=== PATIENT | female | born 1960 | race Two or more races ===

== ENCOUNTER 2023-12-10 14:35 | Inpatient (IN) | payer MEDICAID, OTHER ==
[~2023-12-10] VITALS: Ht 149.9 cm; Wt 59.5 kg
[2023-12-10 15:09] LABS: Basophils # (auto) 0.1 10 ^3/uL (0-0.2); Basophils % (auto) 0.7 % (0.0-2.0); Eosinophils # (auto) 0.2 10 ^3/uL (0-0.8); Eosinophils % (auto) 2.3 % (0.0-7.0); Hematocrit 39.3 % (36.0-46.0); Hemoglobin 13.5 g/dL (12.2-16.2); Lymphocytes # (auto) 2.2 10 ^3/uL (0.4-5.4); Lymphocytes % (auto) 28.3 % (10.0-50.0); Mean Corpuscular Hemoglobin 32.1 pg (28.0-32.0); Mean Corpuscular Hgb Conc. 34.5 g/dL (32.0-36.0); Mean Corpuscular Volume 93.1 fL (80.0-100.0); Monocytes # (auto) 0.5 10 ^3/uL (0-1.3); Monocytes % (auto) 6.2 % (0.0-12.0); Neutrophils # (auto) 4.8 10 ^3/uL (1.6-8.6); Neutrophils % (auto) 62.5 % (37.0-80.0); Nucleated Red Blood Cells % 0.1 %; Platelet Count (auto) 244 10^3/uL (140-450); Red Blood Cells 4.22 10^6/uL (4.0-5.20); Red Cell Distribution Width 13.1 % (11.8-14.3); White Blood Cell 7.7 10^3/uL (4.4-10.8)
[2023-12-10 15:30] LABS: Alanine Aminotransferase 23 U/L (7-40); Albumin 4.5 g/dL (3.2-4.8); Alkaline Phosphatase 165 U/L (46-116); Anion Gap 9 (5-15); Aspartate Aminotransferase 16 U/L (13-40); BUN/Creatinine Ratio 8.6 (10.0-20.0); Bilirubin, Total 0.4 mg/dL (0.2-1.0); Blood Urea Nitrogen 7 mg/dL (9-23); Calcium 9.7 mg/dL (8.7-10.4); Carbon Dioxide 25 mmol/L (20-31); Chloride 104 mmol/L (98-107); Glucose 234 mg/dL (74-106); Potassium 3.7 mmol/L (3.5-5.1); Sodium 138 mmol/L (136-145); Total Protein 7.8 g/dL (5.7-8.2)
[2023-12-10 19:00] VITALS: PULSE 67; RESP 16; O2SAT 99
[2023-12-10] MEDS: SODIUM CHLORIDE 0.9% 1,000 ML IV ONE (19:36)
[2023-12-10] MEDS: ASPirin 325 MG TAB PO ONE (19:53)
[2023-12-10] MEDS: NITROGLYCERIN 0.4 MG SL TAB SL ONE (19:54)
[2023-12-11] MEDS ORDERED: KETOROLAC TROMETH 30 MG/ML 1ML VIAL IV PRN (00:15)
[2023-12-11] MEDS ORDERED: ACETAMINOPHEN 500 MG TAB PO PRN (00:15)
[2023-12-11] MEDS: POTASSIUM EFFERVESENT TAB 25 MEQ PO ONE (00:48)
[2023-12-11] MEDS: ENOXAPARIN SOD 40 MG/0.4 ML SYRINGE SC ONE (00:49)
[2023-12-11 02:18] LABS: Urine Bacteria MANY /hpf (None Seen); Urine Blood Negative /uL (Negative); Urine Clarity Turbid (Clear); Urine Color Colorless (Yellow); Urine Mucus FEW (None Seen); Urine Protein, UAD Negative (Negative); Urine Specific Gravity 1.014 (1.001-1.035); Urine Urobilinogen Normal (Negative); Urine WBC 135 /hpf (0 - 5)
[2023-12-11 02:20] LABS: Amphetamine Screen, Urine Neg (NEGATIVE); Barbiturate Scree,Urine Neg (NEGATIVE); Benzodiazephine Screen, Urine Neg (NEGATIVE); Cannabinoid Screen, Urine Neg (NEGATIVE); Cocaine Screen, Urine Neg (NEGATIVE); Opiate Scree,Urine Neg (NEGATIVE); Phencyclidine Screen, Urine Neg (NEGATIVE)
[2023-12-11 03:39] VITALS: PULSE 59; RESP 16; O2SAT 98
[2023-12-11] MEDS ORDERED: ATOR20TA PO (06:10)
[2023-12-11 07:39] VITALS: PULSE 62
[2023-12-11 08:16] LABS: COVID19 ANTIGEN SOFIA FIA NEGATIVE (NEGATIVE)
[2023-12-11] MEDS: ASPirin 81 mg TAB PO SCH (08:56)
[2023-12-11] MEDS: cefTRIAXone 1GM/50ML D5W 50 ML IV SCH (08:56)
[2023-12-11 09:00] VITALS: BP 107/61; PULSE 63; RESP 20; TEMP 97.6; O2SAT 97
[2023-12-11 10:02] LABS: Basophils # (auto) 0 10 ^3/uL (0-0.2); Basophils % (auto) 0.8 % (0.0-2.0); Eosinophils # (auto) 0.2 10 ^3/uL (0-0.8); Eosinophils % (auto) 3.2 % (0.0-7.0); Hematocrit 38.6 % (36.0-46.0); Hemoglobin 13.3 g/dL (12.2-16.2); Lymphocytes # (auto) 1.8 10 ^3/uL (0.4-5.4); Lymphocytes % (auto) 30.3 % (10.0-50.0); Mean Corpuscular Hemoglobin 32.3 pg (28.0-32.0); Mean Corpuscular Hgb Conc. 34.4 g/dL (32.0-36.0); Mean Corpuscular Volume 93.9 fL (80.0-100.0); Monocytes # (auto) 0.4 10 ^3/uL (0-1.3); Monocytes % (auto) 6.3 % (0.0-12.0); Neutrophils # (auto) 3.5 10 ^3/uL (1.6-8.6); Neutrophils % (auto) 59.4 % (37.0-80.0); Nucleated Red Blood Cells % 0.1 %; Platelet Count (auto) 234 10^3/uL (140-450); Red Blood Cells 4.11 10^6/uL (4.0-5.20); Red Cell Distribution Width 13.6 % (11.8-14.3); White Blood Cell 5.8 10^3/uL (4.4-10.8)
[2023-12-11 10:26] LABS: Anion Gap 7 (5-15); Carbon Dioxide 27 mmol/L (20-31); Chloride 107 mmol/L (98-107); Potassium 3.6 mmol/L (3.5-5.1); Sodium 141 mmol/L (136-145)
[2023-12-11 10:27] LABS: Calcium 9.4 mg/dL (8.7-10.4)
[2023-12-11 10:32] LABS: Glucose 151 mg/dL (74-106); Triglycerides 245 mg/dL (< 150)
[2023-12-11 10:33] LABS: LDL Cholesterol 98 mg/dL (< 100)
[2023-12-11 10:34] LABS: Cholesterol 176 mg/dL (< 200); HDL Cholesterol 41 mg/dL (40-59)
[2023-12-11 10:35] LABS: BUN/Creatinine Ratio 6.7 (10.0-20.0); Blood Urea Nitrogen < 5 mg/dL (9-23)
[2023-12-11 10:44] LABS: INR 1.08 (0.9-1.15); Partial Thromboplastin Time 29.7 SEC (24.5-34.5); Prothrombin Time 11.4 sec (9.3-11.8)
[2023-12-11 13:00] VITALS: BP 111/64; PULSE 70; RESP 18; TEMP 97.8; O2SAT 98
[2023-12-11 13:43] LABS: Erythrocyte Sedimentation Rate 13 mm/hr (0-20)
[2023-12-11 16:28] VITALS: BP 105/59; PULSE 65; RESP 16; TEMP 97.9; O2SAT 97
[2023-12-11 18:36] LABS: Rapid Influenza A Negative (Negative); Rapid Influenza B Negative (Negative)
[2023-12-11 21:00] VITALS: BP 108/61; PULSE 64; RESP 20; TEMP 97.7; O2SAT 97
[2023-12-11] MEDS: ATORVASTATIN 20 MG TAB PO SCH (21:11)
[2023-12-12] VITALS (8 sets, daily range): BP systolic 91–142; BP diastolic 44–84; PULSE 58–70; RESP 17–22; TEMP 97.5–98.3; O2SAT 96–99
[2023-12-12 06:41] LABS: Basophils # (auto) 0.1 10 ^3/uL (0-0.2); Eosinophils # (auto) 0.2 10 ^3/uL (0-0.8); Eosinophils % (auto) 2.9 % (0.0-7.0); Hematocrit 39.7 % (36.0-46.0); Hemoglobin 13.6 g/dL (12.2-16.2); Lymphocytes # (auto) 2.1 10 ^3/uL (0.4-5.4); Lymphocytes % (auto) 33.1 % (10.0-50.0); Mean Corpuscular Hemoglobin 32.2 pg (28.0-32.0); Mean Corpuscular Hgb Conc. 34.4 g/dL (32.0-36.0); Mean Corpuscular Volume 93.9 fL (80.0-100.0); Monocytes # (auto) 0.5 10 ^3/uL (0-1.3); Monocytes % (auto) 8.6 % (0.0-12.0); Neutrophils # (auto) 3.4 10 ^3/uL (1.6-8.6); Neutrophils % (auto) 54.4 % (37.0-80.0); Nucleated Red Blood Cells % 0.1 %; Platelet Count (auto) 246 10^3/uL (140-450); Red Blood Cells 4.23 10^6/uL (4.0-5.20); Red Cell Distribution Width 13.1 % (11.8-14.3); White Blood Cell 6.3 10^3/uL (4.4-10.8)
[2023-12-12 06:50] LABS: Chloride 106 mmol/L (98-107); Sodium 139 mmol/L (136-145)
[2023-12-12 06:51] LABS: Anion Gap 7 (5-15); Carbon Dioxide 26 mmol/L (20-31)
[2023-12-12 06:52] LABS: Calcium 9.8 mg/dL (8.7-10.4)
[2023-12-12 06:56] LABS: Glucose 87 mg/dL (74-106)
[2023-12-12 06:57] LABS: BUN/Creatinine Ratio 12.8 (10.0-20.0); Blood Urea Nitrogen 10 mg/dL (9-23)
[2023-12-12] MEDS: SUCRALFATE 1 GM/10 ML ORAL SUSP GT SCH (14:18)
[2023-12-12] MEDS: PANTOPRAZOLE 40 MG TAB PO SCH (14:18)
[2023-12-12] MEDS: SUCRALFATE 1 GM/10 ML ORAL SUSP PO SCH (14:30)
[2023-12-13 01:00] VITALS: BP_SYST 102; BP_SYST 129; BP_DIAS 51; BP_DIAS 77; PULSE 60; PULSE 87; RESP 17; TEMP 97.6; O2SAT 96; O2SAT 97
[2023-12-13 05:00] VITALS: BP 99/55; PULSE 56; RESP 17; TEMP 97.7; O2SAT 95
[2023-12-13 07:07] LABS: Basophils # (auto) 0.1 10 ^3/uL (0-0.2); Basophils % (auto) 0.9 % (0.0-2.0); Eosinophils # (auto) 0.2 10 ^3/uL (0-0.8); Eosinophils % (auto) 3.7 % (0.0-7.0); Hematocrit 41.3 % (36.0-46.0); Hemoglobin 14.2 g/dL (12.2-16.2); Lymphocytes # (auto) 2.1 10 ^3/uL (0.4-5.4); Lymphocytes % (auto) 34.2 % (10.0-50.0); Mean Corpuscular Hemoglobin 32.1 pg (28.0-32.0); Mean Corpuscular Hgb Conc. 34.3 g/dL (32.0-36.0); Mean Corpuscular Volume 93.7 fL (80.0-100.0); Monocytes # (auto) 0.5 10 ^3/uL (0-1.3); Monocytes % (auto) 7.9 % (0.0-12.0); Neutrophils # (auto) 3.3 10 ^3/uL (1.6-8.6); Neutrophils % (auto) 53.3 % (37.0-80.0); Nucleated Red Blood Cells % 0.1 %; Platelet Count (auto) 257 10^3/uL (140-450); Red Blood Cells 4.41 10^6/uL (4.0-5.20); White Blood Cell 6.1 10^3/uL (4.4-10.8)
[2023-12-13 07:22] LABS: Anion Gap 10 (5-15); Carbon Dioxide 24 mmol/L (20-31); Chloride 105 mmol/L (98-107); Potassium 3.7 mmol/L (3.5-5.1); Sodium 139 mmol/L (136-145)
[2023-12-13 07:28] LABS: BUN/Creatinine Ratio 14.1 (10.0-20.0); Blood Urea Nitrogen 11 mg/dL (9-23); Glucose 86 mg/dL (74-106)
[2023-12-13 08:00] VITALS: RESP 16
[2023-12-13 08:11] VITALS: BP 104/50; PULSE 69; RESP 20; TEMP 97.7; O2SAT 95
[2023-12-13 13:24] VITALS: BP 104/58; PULSE 66; RESP 19; TEMP 97.7; O2SAT 97
[2023-12-13 15:06] VITALS: BP 104/58; PULSE 66; RESP 16; TEMP 97.7; O2SAT 97
[2023-12-13] MEDS ORDERED: CIPR250T26 PO (18:14)
[2023-12-13] MEDS ORDERED: ATOR40TA52 PO (18:14)
== END 2023-12-13 16:00 | disposition home or self-care (01) | DRG 463 ==
LOC: ER 14:38 → TELE 23:44 → TELE-WESTW 12-11 05:30 → WEST WING 12-11 22:27
PROVIDERS: ADMIT Internal Medicine; ATTEND Internal Medicine
DX: N30.00 Acute cystitis without hematuria (principal); E66.3 Overweight; M94.0 Chondrocostal junction syndrome [Tietze]; E78.5 Hyperlipidemia, unspecified; M19.90 Unspecified osteoarthritis, unspecified site; I45.10 Unspecified right bundle-branch block; R73.9 Hyperglycemia, unspecified; Z20.822 Contact with and (suspected) exposure to COVID-19; Z68.26 Body mass index [BMI] 26.0-26.9, adult; Z79.899 Other long term (current) drug therapy; Z88.0 Allergy status to penicillin
CPT/HCPCS: 36415; 71045; 80048; 80053; 80061; 80307; 81001; 82306; 82607; 83036; 83880; 84443; 84484; 85025; 85379; 85610; 85652; 85730; 86141; 87086; 87426; 87804; 93005; 93306; G0378